=== PATIENT | female | born 1970 | race Hispanic/Latino ===

== ENCOUNTER 2023-05-16 18:35 | Emergency (ER) | payer OTHER, MEDICAID, SELFPAY ==
[2023-05-16 18:40] VITALS: BP 129/73; PULSE 93; RESP 18; TEMP 36.6; O2SAT 96; BMI 27.1
--- NOTE | 2023-05-16 20:15 | DI.RAD.S_ITS ---
PROCEDURE: XR KNEE RT 3V INDICATIONS: sudden onset pain and swelling TECHNIQUE: 3 views of the knee were acquired. COMPARISON: None. FINDINGS: Bones: No fractures or dislocations. No suspicious bony lesions. There are small intercondylar osteophytes and patellar enthesophytes. Soft tissues: No joint effusion. No suspicious soft tissue calcifications. IMPRESSION: Degenerative change. No acute radiographic findings. If pain persists, followup imaging in 5-7 days is recommended to exclude occult fracture. Dictated by: Lola Bailey M.D. on 05/16/2023 at 21:54 Approved by: Lola Bailey M.D. on 05/16/2023 at 21:54
--- NOTE | 2023-05-16 20:45 | ED_ITS ---
HPI - Neck Pain/Injury General Chief Complaint: Neck Pain/Injury Stated Complaint: Back/knee pain Mode of arrival: Ambulatory History of Present Illness HPI Narrative: Patient brought here by daughter for complaints of right anterior knee pain that radiates inferiorly. Has had swelling that has been traveling towards her right foot. Patient denies any previous knee problems injury or surgery. 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 She does not elevate her feet when at rest. No calf pain. No chest pain no shortness of breath. Neck pain is chronic and intermittent after injury 3 years ago. Is on ibuprofen for this pain. This is not new. No new injury to her neck. Related Data Allergies Allergy/AdvReac Type Severity Reaction Status Date / Time No Known Drug Allergies Allergy Verified 05/16/23 18:45 Review of Systems Review of Systems Narrative: GENERAL: negative chills, fatigue, malaise, fever, sweats. HEENT: negative sinus pain, ear pain, sore throat RESPIRATORY: negative dyspnea, cough CARDIOVASCULAR: negative chest pain, palpitations GASTROINTESTINAL: negative nausea, vomiting, abdominal pain : negative dysuria, frequency, hematuria MUSCULOSKELETAL: Positive muscle or bony pain SKIN: negative rash, skin lesions NEUROLOGIC: negative weakness, numbness ROS Unobtainable: All systems reviewed & are unremarkable except as noted in HPI and below Patient History Social History Smoking Status: Never smoker Smoking Status: Never smoker Substance Use Type: does not use Exam Narrative Exam Narrative: GENERAL: in no distress, not toxic not dyspneic HEAD: Normocephalic. EYES: Pupils equal round ENT: Mucous membranes moist. NECK: Trachea midline. No midline tenderness or step-off of the cervical spine. There is tenderness to the right paracervical muscle area. EXTREMITIES: No gross deformities. Right knee to toes exposed. Foot is warm soft and pink with strong pedal pulse and light touch intact for to toes. Nontender ankle. There is 1+ edema to the ankle and foot. Brisk cap refills. Examination of the right knee, there is pain but no laxity to the right knee on mediolateral and rotational stress of the right leg. There is no pain with anterior and posterior stress of the right leg. There is no calf tenderness. No palpable cords. Negative Mcgowan test and Homans test NEURO: AOx4. SKIN: Warm and dry PSYCH: Not anxious, is cooperative Initial Vital Signs Initial Vital Signs: Vital Signs Temperature 97.8 F 05/16/23 18:40 Pulse Rate 93 H 05/16/23 18:40 Respiratory Rate 18 05/16/23 18:40 Blood Pressure 129/73 05/16/23 18:40 Pulse Oximetry 96 05/16/23 18:40 Oxygen Delivery Method Room Air 05/16/23 18:40 Course Orders Ordered: ED Orders 05/16/23 20:15 XR knee RT 3V Stat Vital Signs Vital signs: Vital Signs - 8 hr 05/16/23 18:40 Temperature 97.8 F Pulse Rate 93 H Respiratory Rate 18 Blood Pressure 129/73 Pulse Oximetry 96 Oxygen Delivery Method Room Air MDM - Neck Pain/Injury Imaging Data Extremity x-ray #1: Radiologist's Impression: [address] [address] XRay Report Signed Patient: Louise Bañuelos MR#: [id number] : 1970 Acct:[id number] Age/Sex: 53 / F Date of Service: 05/16/23 Loc: Accession Number: [id number] ?? Procedure: XR knee RT 3V Ordering Provider: Ruperto Fowler MD PROCEDURE:? XR KNEE RT 3V ? INDICATIONS:? sudden onset pain and swelling ? TECHNIQUE:? 3 views of the knee were acquired.? ? COMPARISON:? None. ? FINDINGS:? ? Bones:? No fractures or dislocations.? No suspicious bony lesions.? There are small intercondylar osteophytes and patellar enthesophytes. ? Soft tissues:? No joint effusion.? No suspicious soft tissue calcifications.? ? ? IMPRESSION:? Degenerative change. No acute radiographic findings. If pain persists, followup imaging in 5-7 days is recommended to exclude occult fracture. ? ? Dictated by: Lola Bailey M.D. on 05/16/2023 at 21:54 ? ? Approved by: Lola Bailey M.D. on 05/16/2023 at 21:54 ? MDM Narrative Medical decision making narrative: Patient brought here by daughter for complaints of right anterior knee pain that radiates inferiorly. Has had swelling that has been traveling towards her right foot. Patient denies any previous knee problems injury or surgery. 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 She does not elevate her feet when at rest. No calf pain. No chest pain no shortness of breath. Neck pain is chronic and intermittent after injury 3 years ago. Is on ibuprofen for this pain. This is not new. No new injury to her neck. After history and exam x-ray right knee. No indication for x-ray of the neck, this is chronic. Patient does not want any ibuprofen. MDM CC: Right knee pain and swelling Complicating co-morbidities: Longstanding hours at work Data collected from: Patient Medical records reviewed: No recent visits here for this complaint Differential considered: Includes but not limited to arthritis medial meniscus injury osteoarthritis knee strain/sprain Exam documented above, pertinent findings include: Tender knee on exam Imaging studies independently reviewed: X-ray right knee degenerative changes noted Treatments: Patient does not want any ibuprofen. Re-evaluations: 11:54 p.m.. Reviewed results with patient. Likely long hours standing has exacerbated ongoing right knee problem and causing pain. There is degenerative changes on x-ray. Work note provided. Referral for Orthopedics provided. She agrees with treatment plan and follow-up. Return precautions reviewed. She desires discharge home Discussion: Appropriate for discharge home. Exam and imaging otherwise reassuring. Pain is controlled. Patient does not want anything for pain. Referral for Orthopedics provided. She agrees with this plan. Work note provided. She desires discharge home. Return precautions reviewed with her. Diagnosis: Knee pain Discharge Plan Departure Patient Disposition: Home Clinical Impression: Degenerative joint disease Instructions: DI for Knee Pain Activity Restrictions/Additional Instructions: X-ray of your knee does show degenerative joint disease and changes. This is longstanding and likely worse with your long hours working with standing on your feet and weight-bearing to your knees. Please call provided orthopedic office today for office re-evaluation and possible MRI of your knee. Please do shantel nue ibuprofen for pain. Please do try to elevate your leg and foot when at rest to reduce swelling. May use cool packs to the knee as needed for pain and swelling. Use it 20 minutes at a time. Return if worse if any questions or concerns Referrals: Kassy Rice MD [Physician] - Stand Alone Forms: Patient Portal/API, Work Release Note
== END 2023-05-17 00:08 | disposition home or self-care (01) ==
PROVIDERS: Emergency Provider Emergency Medicine
DX: M17.11 Unilateral primary osteoarthritis, right knee (principal); M54.2 Cervicalgia
CPT/HCPCS: 73562; 99283

== ENCOUNTER 2025-08-11 09:35 | Emergency (ER) | payer SELFPAY ==
[2025-08-11] VITALS (12 sets, daily range): BP systolic 123–146; BP diastolic 59–72; PULSE 84–87; RESP 16–21; TEMP 36.9; O2SAT 96–99; BMI 26.5
--- NOTE | 2025-08-11 09:51 | ED.WEAKNESS ---
HPI - Weakness General Chief complaint: Weakness Stated complaint: Weakness, numbess in hands, shaking since morning Time Seen by Provider: 08/11/25 09:47 Source: patient Mode of arrival: Ambulatory History of Present Illness HPI Narrative: 55-year-old female t2d ran out of her meds 2 weeks ago presents with fatigue, weakness, shaking, headache and to bouts of nonbilious nonbloody nausea vomiting today. She ran out of her metformin 2 weeks ago along with her rapid insulin. Patient denies chest pain, shortness of breath, fever, chills, body aches, sore throat, cough, diarrhea, abdominal pain, urinary complaints. Other than what is stated 14 point review of system is negative. Related Data Previous Rx's ?Medication ?Instructions ?Recorded nitrofurantoin 100 mg PO Q12H 5 days #10 caps 08/11/25 monohydrate/macrocrystals 100 mg capsule (Macrobid) Allergies Allergy/AdvReac Type Severity Reaction Status Date / Time No Known Drug Allergies Allergy Verified 05/16/23 18:45 Review of Systems Review of Systems ROS Unobtainable: All systems reviewed & are unremarkable except as noted in HPI and below Patient History Social History Smoking Status: Never smoker Smoking Status: Never smoker Exam Narrative Exam Narrative: GENERAL: [81] year old patient appears stated age. Well-developed patient, in mild distress. HEAD: Atraumatic. Normocephalic. EYES: Pupils equal round and reactive. Extraocular motions intact. No scleral icterus. No injection or drainage. ENT: Nose without bleeding, purulent drainage. Throat without erythema, tonsillar hypertrophy or exudate. Airway patent. NECK: Trachea midline. Non tender CARDIOVASCULAR: Regular rate and rhythm without murmurs, gallops, or rubs. RESPIRATORY: Clear to auscultation. Breath sounds equal bilaterally. No wheezes, rales, or rhonchi. GASTROINTESTINAL: Abdomen soft, non-tender, nondistended. EXTREMITIES: No edema or joint tenderness. BACK: Nontender without deformity or crepitance. No flank tenderness. NEURO: AOx3. SKIN: No rash or erythema of visible areas Initial Vital Signs Initial Vital Signs: Vital Signs Temperature 98.5 F 08/11/25 09:42 Pulse Rate 87 08/11/25 09:42 Respiratory Rate 18 08/11/25 09:42 Blood Pressure 146/70 H 08/11/25 09:42 Pulse Oximetry 96 08/11/25 09:42 Oxygen Delivery Method Room Air 08/11/25 09:42 Course Orders Ordered: ED Orders 08/11/25 09:52 XR chest 1V Stat EKG-12 Lead Stat 08/11/25 09:57 Complete Blood Count AUTO DIFF Stat Comprehensive Metabolic Panel Stat Ketones (Beta-Hydroxybutyrate) Stat Lipase Stat Magnesium Stat NT-proBNP (BNP-Adult 18+) Stat PTT Partial Thromboplastin Calos Stat Prothrombin Time INR Stat Troponin & CK Cardiac Panel Stat 08/11/25 10:21 CT head/brain wo con Stat 08/11/25 10:47 Covid-19 + FLU A/B + RSV - PCR Stat 08/11/25 12:20 Urinalysis Screen (Dip Only) Stat Urine Culture Stat Urine Microscopic Stat 08/11/25 12:28 Troponin I Stat Lactated Ringer's (Lactated Ringers) 1,000 mls @ 1,000 mls/hr IV BOLUS ONE Stop: 08/11/25 13:45 Last Admin: 08/11/25 13:07 Dose: 1,000 mls/hr Documented By: ARRON Discontinued Medications Acetaminophen (Acetaminophen 325 Mg Tablet) 650 mg PO NOW ONE Stop: 08/11/25 10:31 Last Admin: 08/11/25 10:35 Dose: 650 mg Documented By: DENNIS Aspirin (Aspirin 81 Mg Chew Tab) 324 mg PO NOW ONE Stop: 08/11/25 09:53 Last Admin: 08/11/25 11:16 Dose: Not Given Documented By: DENNIS Lactated Ringer's (Lactated Ringers) 1,000 mls @ 1,000 mls/hr IV BOLUS ONE Stop: 08/11/25 11:29 Last Infusion: 08/11/25 11:34 Dose: Infused Documented By: Admin: 08/11/25 10:38 Dose: 1,000 mls/hr Documented By: DENNIS Lactated Ringer's (Lactated Ringers) 1,000 mls @ 1,000 mls/hr IV BOLUS ONE Stop: 08/11/25 11:56 Last Infusion: 08/11/25 13:06 Dose: Infused Documented By: Admin: 08/11/25 11:36 Dose: 1,000 mls/hr Documented By: ARRON Ketorolac Tromethamine (Ketorolac 30 Mg/Ml Vial) 15 mg IV NOW ONE Stop: 08/11/25 12:09 Last Admin: 08/11/25 12:22 Dose: 15 mg Documented By: ARRON Ketorolac Tromethamine (Ketorolac 30 Mg/Ml Vial) 15 mg IV NOW ONE Stop: 08/11/25 12:47 Last Admin: 08/11/25 13:00 Dose: Not Given Documented By: ARRON Vital Signs Vital signs: Vital Signs - 8 hr 08/11/25 09:42 08/11/25 09:51 08/11/25 09:52 Temperature 98.5 F Pulse Rate 87 85 84 Respiratory Rate 18 Blood Pressure 146/70 H Pulse Oximetry 96 97 97 Oxygen Delivery Method Room Air 08/11/25 09:52 08/11/25 10:00 08/11/25 10:00 Temperature Pulse Rate 86 Respiratory Rate Blood Pressure 132/72 144/71 H Pulse Oximetry 96 Oxygen Delivery Method 08/11/25 10:30 08/11/25 10:30 08/11/25 11:00 Temperature Pulse Rate 84 85 Respiratory Rate 17 18 Blood Pressure 131/67 Pulse Oximetry 98 97 Oxygen Delivery Method Room Air 08/11/25 11:00 08/11/25 11:30 08/11/25 11:30 Temperature Pulse Rate 84 Respiratory Rate 21 Blood Pressure 131/61 126/65 Pulse Oximetry 96 Oxygen Delivery Method 08/11/25 12:00 08/11/25 12:00 08/11/25 12:30 Temperature Pulse Rate 84 84 Respiratory Rate 17 18 Blood Pressure 133/72 Pulse Oximetry 97 99 Oxygen Delivery Method Room Air 08/11/25 12:30 Temperature Pulse Rate Respiratory Rate Blood Pressure 136/69 Pulse Oximetry Oxygen Delivery Method MDM - Weakness Lab Data 08/11/25 09:57 08/11/25 09:57 Labs: Lab Results 08/11/25 08/11/25 08/11/25 Range/Units 09:49 09:57 10:47 WBC 6.3 (4.5-11.0) X10^3/uL RBC 5.21 H (4.0-5.2) X10^6/uL Hgb 15.1 (12.0-16.0) g/dL Hct 44.7 (36-46) % MCV 85.8 (80-100) fL MCH 28.9 (26-34) PG MCHC 33.7 (30-36) % RDW 14.4 (11.6-14.8) % Plt Count 197 (150-400) X10^3/uL Neut % (Auto) 83.1 H (50-75) % Lymph % (Auto) 13.0 L (25-40) % Boundary % (Auto) 3.4 (3-14) % Eos % (Auto) 0.4 L (2-4) % Baso % (Auto) 0.1 (0-2) % Neut # (Auto) 5300 (1966-0828) /uL Lymph # (Auto) 800 L (8895-6300) /uL Boundary # (Auto) 200 (0-900) /uL Eos # (Auto) 0 (0-450) /uL Baso # (Auto) 0 (0-100) /uL PT 11.0 (9.4-12.5) SECONDS INR 1.0 (0.9-1.3) APTT 31 (25.1-36.5) SECONDS Sodium 138 (137-145) mmol/L Potassium 4.2 (3.4-5.1) mmol/L Chloride 102 (98-107) mmol/L Carbon Dioxide 22 (22-32) mmol/L BUN 15 (7-17) mg/dL Creatinine 0.48 L (0.52-1.04) mg/dL Estimated GFR > 60 (>60) mL/min BUN/Creatinine Ratio 31.3 H (6-22) Glucose 187 H (70-99) mg/dL POC Whole Bld Glucose 172 H (70-99) mg/dL Calcium 9.5 (8.4-10.2) mg/dL Magnesium 1.8 (1.6-2.3) mg/dL Total Bilirubin 0.6 (0.2-1.3) mg/dL AST 23 (14-36) IU/L ALT 26 (<35) IU/L Alkaline Phosphatase 102 (38-126) U/L Total Creatine Kinase 50 (30-135) U/L Troponin I < 0.012 (0.01-0.034) ng/mL NT-Pro-B Natriuret Pep < 20 (<125) pg/mL Total Protein 8.5 H (6.3-8.2) g/dL Albumin 5.2 H (3.5-5.0) g/dL Globulin 3.3 (1.7-4.1) g/dL Albumin/Globulin Ratio 1.6 (1.0-2.8) Lipase 78 (23-300) U/L Urine Color Urine Appearance Urine pH (4.5-8.0) Ur Specific Adah (1.000-1.035) Urine Protein (Negative) Urine Glucose (UA) (Negative) g/dL Urine Ketones (NEGATIVE) Urine Occult Blood (Negative) Urine Nitrate (Negative) Urine Bilirubin (NEGATIVE) Urine Urobilinogen (0.2) E.U./dL Ur Leukocyte Esterase (NEGATIVE) Urine RBC (0-5/HPF) Urine WBC (0-5/HPF) Ur Squamous Epith Cells (0-5/HPF) Urine Bacteria (None) Ur Culture Indicated? Vol Urine Centrifuged Ketones 0.84 H (<0.27) mmol/L SARS-CoV-2 (PCR) Negative (Negative) Influenza A (RT-PCR) Flu a negative (NEGATIVE) Influenza B (RT-PCR) Flu b negative (NEGATIVE) RSV (PCR) Negative (Negative) 08/11/25 08/11/25 Range/Units 12:20 12:28 WBC (4.5-11.0) X10^3/uL RBC (4.0-5.2) X10^6/uL Hgb (12.0-16.0) g/dL Hct (36-46) % MCV (80-100) fL MCH (26-34) PG MCHC (30-36) % RDW (11.6-14.8) % Plt Count (150-400) X10^3/uL Neut % (Auto) (50-75) % Lymph % (Auto) (25-40) % Boundary % (Auto) (3-14) % Eos % (Auto) (2-4) % Baso % (Auto) (0-2) % Neut # (Auto) (5864-1976) /uL Lymph # (Auto) (1563-8854) /uL Boundary # (Auto) (0-900) /uL Eos # (Auto) (0-450) /uL Baso # (Auto) (0-100) /uL PT (9.4-12.5) SECONDS INR (0.9-1.3) APTT (25.1-36.5) SECONDS Sodium (137-145) mmol/L Potassium (3.4-5.1) mmol/L Chloride (98-107) mmol/L Carbon Dioxide (22-32) mmol/L BUN (7-17) mg/dL Creatinine (0.52-1.04) mg/dL Estimated GFR (>60) mL/min BUN/Creatinine Ratio (6-22) Glucose (70-99) mg/dL POC Whole Bld Glucose (70-99) mg/dL Calcium (8.4-10.2) mg/dL Magnesium (1.6-2.3) mg/dL Total Bilirubin (0.2-1.3) mg/dL AST (14-36) IU/L ALT (<35) IU/L Alkaline Phosphatase (38-126) U/L Total Creatine Kinase (30-135) U/L Troponin I < 0.012 (0.01-0.034) ng/mL NT-Pro-B Natriuret Pep (<125) pg/mL Total Protein (6.3-8.2) g/dL Albumin (3.5-5.0) g/dL Globulin (1.7-4.1) g/dL Albumin/Globulin Ratio (1.0-2.8) Lipase (23-300) U/L Urine Color Yellow Urine Appearance Sl cloudy Urine pH 5.5 (4.5-8.0) Ur Specific Adah 1.010 (1.000-1.035) Urine Protein Negative (Negative) Urine Glucose (UA) 3+ H (Negative) g/dL Urine Ketones 1+ H (NEGATIVE) Urine Occult Blood Negative (Negative) Urine Nitrate Negative (Negative) Urine Bilirubin Negative (NEGATIVE) Urine Urobilinogen 0.2 (0.2) E.U./dL Ur Leukocyte Esterase 1+ H (NEGATIVE) Urine RBC None seen (0-5/HPF) Urine WBC 5-10/hpf H (0-5/HPF) Ur Squamous Epith Cells 10-30 /hpf H (0-5/HPF) Urine Bacteria Many (>30) H (None) Ur Culture Indicated? Specimen cultured Vol Urine Centrifuged 10ml (spun) Ketones (<0.27) mmol/L SARS-CoV-2 (PCR) (Negative) Influenza A (RT-PCR) (NEGATIVE) Influenza B (RT-PCR) (NEGATIVE) RSV (PCR) (Negative) Imaging Data Chest x-ray: Radiologist Impression: [address] [address] XRay Report Signed Patient: Louise Bañuelos MR#: [id number] : 1970 Acct:[id number] Age/Sex: 55 / F Date of Service: 08/11/25 Loc: ED Accession Number: [id number] Procedure: XR chest 1V Ordering Provider: Eder Rivas D.O. PROCEDURE: XR CHEST 1V INDICATIONS: Chest Pain TECHNIQUE: One view of the chest was acquired. COMPARISON: [facility], , XR CHEST 2 VIEWS, 01/27/2025, 11:38. FINDINGS: Surgical changes and devices: None. Lungs and pleura: Lungs are clear. No pleural effusions or pneumothorax. Mediastinum: Mediastinal contours appear normal. Heart size is normal. Bones and chest wall: No suspicious bony lesions. Overlying soft tissues appear unremarkable. IMPRESSION: No acute cardiopulmonary abnormality is seen. CT scan - head: Radiologist Impression: [address] [address] [address] Scan Report Signed Patient: Louise Bañuelos MR#: [id number] : 1970 Acct:[id number] Age/Sex: 55 / F Date of Service: 08/11/25 Loc: ED Accession Number: [id number] Procedure: CT head/brain wo con Ordering Provider: Eder Rivas D.O. PROCEDURE: CT HEAD/BRAIN WO CON INDICATIONS: headache nausea vomit TECHNIQUE: Noncontrast 4.5 mm thick angled axial sections acquired from the foramen magnum to the vertex, with coronal and sagittal reformats. For radiation dose reduction, the following was used: automated exposure control, adjustment of mA and/or kV according to patient size. COMPARISON: None. FINDINGS: Image quality: Diagnostic. CSF spaces: Basal cisterns are patent. No extra-axial fluid collections. Ventricles are normal in size and shape. Brain: No midline shift. No intracranial mass effect or hemorrhage. Flower-white matter interface is normal. Skull and face: Calvarium and visualized facial bones are intact, without suspicious lesions. Sinuses: Visualized sinuses and mastoids are clear. IMPRESSION: No acute intracranial pathology. Dictated by: Kapil Gonzalez M.D. on 08/11/2025 at 10:32 Approved by: Kapil Gonzalez M.D. on 08/11/2025 at 10:34 ECG Data Interpretation: NSR HR 87 OK 134 QRS [address]-t wave change No previous EKG to compare MDM Narrative Medical decision making narrative: All lab work, vital signs, nurse triage note, medication list, previous ER visits, and all imaging studies reviewed. WBC 6.3 hemoglobin 15.1 platelet 197 INR 1.0 sodium 130 potassium 4.2 chloride 102 CO2 22 BUN 15 creatinine 0.[address] head showed no acute process EKG sinus rhythm 1st set troponin normal patient given fluids and Tylenol. UA shows 5-10 WBC 10-30 squamous many bacteria +1 leuks. Patient given 1L LR x 3 and macrobid here. Differential diagnosis DKA, CVA, TIA, hypoglycemia, medication, noncompliance, electrolyte derangement, sepsis, UTI, pneumonia. Discharge Plan Departure Patient Disposition: Home Clinical Impression: Acute hyperglycemia UTI (urinary tract infection) Qualifiers: Urinary tract infection type: acute cystitis Hematuria presence: without hematuria Qualified Code(s): N30.00 - Acute cystitis without hematuria Headache Qualifiers: Headache type: unspecified Headache chronicity pattern: acute headache Intractability: not intractable Qualified Code(s): R51.9 - Headache, unspecified Instructions: DI for Urinary Tract Infection (UTI) Activity Restrictions/Additional Instructions: Return with new or worsening symptoms. Take your medicines as directed. Follow up PCP 1-2 weeks if no improvement in symptoms. Prescriptions: New nitrofurantoin monohyd/m-cryst [Macrobid] 100 mg capsule 100 mg PO Q12H 5 Days Qty: 10 0RF Rx Instructions: must administer with a meal/food Stand Alone Forms: Patient Portal/API
--- NOTE | 2025-08-11 09:52 | EKG_ITS ---
[place] [address] [address] [place] [id number] Test Date: 2025-08-11 Pat Name: Louise Bañuelos Department: [facility] Room: Gender: Female Resolution Agent: : 1970 Requested By: Order Number: [id number] Reading MD: Alexander Rivera Measurements Intervals [place] Rate: 87 P: 43 [place]: 134 QRS: -22 QRSD: 76 T: 36 QT: 384 QTc: 462 Interpretive Statements Normal sinus rhythm Moderate voltage criteria for LVH, may be normal variant ( R in aVL , Johnny product ) Electronically Signed On 08-11-2025 10:34:48 PDT by Alexander Rivera
--- NOTE | 2025-08-11 09:52 | DI.RAD.S_ITS ---
PROCEDURE: XR CHEST 1V INDICATIONS: Chest Pain TECHNIQUE: One view of the chest was acquired. COMPARISON: [facility], CR, XR CHEST 2 VIEWS, 01/27/2025, 11:38. FINDINGS: Surgical changes and devices: None. Lungs and pleura: Lungs are clear. No pleural effusions or pneumothorax. Mediastinum: Mediastinal contours appear normal. Heart size is normal. Bones and chest wall: No suspicious bony lesions. Overlying soft tissues appear unremarkable. IMPRESSION: No acute cardiopulmonary abnormality is seen. Dictated by: Kapil Gonzalez M.D. on 08/11/2025 at 10:34 Approved by: Kapil Gonzalez M.D. on 08/11/2025 at 10:35
[2025-08-11 10:05] LABS: Add Manual Diff / Slide Review NO; Hematocrit 44.7 % (36-46); Hemoglobin 15.1 g/dL (12.0-16.0); Lymphocytes Absolute Auto 800 /uL (1100-4500); Mean Corpuscular HGB Conc 33.7 % (30-36); Mean Corpuscular Hemoglobin 28.9 PG (26-34); Mean Corpuscular Volume 85.8 fL (80-100); Platelet Count 197 X10^3/uL (150-400)
[2025-08-11 10:12] LABS: INR 1.0 (0.9-1.3); Prothrombin Time 11.0 SECONDS (9.4-12.5)
[2025-08-11 10:15] LABS: PTT Partial Thromboplastin Tim 31 SECONDS (25.1-36.5)
[2025-08-11 10:16] LABS: Alanine Aminotransferase 26 IU/L (<35); Albumin 5.2 g/dL (3.5-5.0); Albumin Globulin Ratio 1.6 (1.0-2.8); Alkaline Phosphatase 102 U/L (38-126); Blood Urea Nitrogen 15 mg/dL (7-17); Calcium 9.5 mg/dL (8.4-10.2); Carbon Dioxide 22 mmol/L (22-32); Chloride 102 mmol/L (98-107); Creatine Kinase 50 U/L (30-135); Estimated Glomerular Filt Rate > 60 mL/min (>60); Globulin 3.3 g/dL (1.7-4.1); Glucose 187 mg/dL (70-99); HEMOLYSIS < 15 (0-50); Lipase 78 U/L (23-300); Magnesium 1.8 mg/dL (1.6-2.3); Potassium 4.2 mmol/L (3.4-5.1); Sodium 138 mmol/L (137-145); Total Protein 8.5 g/dL (6.3-8.2)
--- NOTE | 2025-08-11 10:21 | DI.CT.S_ITS ---
PROCEDURE: CT HEAD/BRAIN WO CON INDICATIONS: headache nausea vomit TECHNIQUE: Noncontrast 4.5 mm thick angled axial sections acquired from the foramen magnum to the vertex, with coronal and sagittal reformats. For radiation dose reduction, the following was used: automated exposure control, adjustment of mA and/or kV according to patient size. COMPARISON: None. FINDINGS: Image quality: Diagnostic. CSF spaces: Basal cisterns are patent. No extra-axial fluid collections. Ventricles are normal in size and shape. Brain: No midline shift. No intracranial mass effect or hemorrhage. Flower- white matter interface is normal. Skull and face: Calvarium and visualized facial bones are intact, without suspicious lesions. Sinuses: Visualized sinuses and mastoids are clear. IMPRESSION: No acute intracranial pathology. Dictated by: Kapil Gonzalez M.D. on 08/11/2025 at 10:32 Approved by: Kapil Gonzaelz M.D. on 08/11/2025 at 10:34
[2025-08-11 10:28] LABS: NT-proBNP (BNP-Adult 18+) < 20 pg/mL (<125); Troponin I < 0.012 ng/mL (0.01-0.034)
[2025-08-11] MEDS: ACETAMINOPHEN 325 MG TABLET 650 MG PO (10:35)
[2025-08-11] MEDS: LACTATED RINGERS 1,000 ML 1000 ML IV ×3 (10:38→13:07)
[2025-08-11 10:40] LABS: Ketones (Beta-Hydroxybutyrate) 0.84 mmol/L (<0.27)
--- NOTE | 2025-08-11 11:17 | PC.NURSE ---
When entering pt's room, pt found to be tearful. This RN inquired if her tears were pain related. Pt denied stating she was scared and worried about not having her medications. 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 Pt declined. Primary RN and Marco A CAMPBELL aware.
[2025-08-11 11:38] LABS: Influenza A - CEPHEID Flu A NEGATIVE (NEGATIVE); Influenza B - CEPHEID Flu B NEGATIVE (NEGATIVE)
[2025-08-11 11:50] LABS: COVID-19 CEPHEID 4-PLEX PCR Negative (Negative)
[2025-08-11] MEDS: KETOROLAC 30 MG/ML VIAL 15 MG IV (12:22)
[2025-08-11 12:36] LABS: Appearance Urine UA SL CLOUDY; Bilirubin Urine UA NEGATIVE (NEGATIVE); Color Urine UA YELLOW; Glucose Urine UA 3+ g/dL (Negative); Ketones Urine UA 1+ (NEGATIVE); Leukocyte Esterase Urine UA 1+ (NEGATIVE); Nitrite Urine UA NEGATIVE (Negative); Occult Blood Urine UA NEGATIVE (Negative); Protein Urine UA NEGATIVE (Negative); Specific Gravity Urine UA 1.010 (1.000-1.035); Urobilinogen Urine UA 0.2 E.U./dL (0.2); pH Urine UA 5.5 (4.5-8.0)
[2025-08-11 12:41] LABS: Culture Indicated Urine Specimen Cultured
[2025-08-11 13:05] LABS: Troponin I < 0.012 ng/mL (0.01-0.034)
== END 2025-08-11 14:16 | disposition home or self-care (01) ==
PROVIDERS: Emergency Provider Family Medicine
DX: E11.65 Type 2 diabetes mellitus with hyperglycemia (principal); N30.00 Acute cystitis without hematuria; R51.9 Headache, unspecified; R07.9 Chest pain, unspecified; R11.2 Nausea with vomiting, unspecified
CPT/HCPCS: 36415; 70450; 71045; 80053; 81003; 81015; 82009; 82550; 82962; 83690; 83735; 83880; 84484; 85025; 85610; 85730; 87086; 87637; 93005; 96361; 96374; 99284; J1885; J7120